=== PATIENT | female | born 1995 | race Caucasian/White ===

== ENCOUNTER 2017-05-06 10:31 | Emergency (ER) | payer BC ==
[2017-05-06 10:49] VITALS: BP 114/71
--- NOTE | 2017-05-06 12:23 | UC ---
Respiratory Complaint HPI - HPI Summary HPI Summary: 21 yo female c/o progressive cough with yellow productive mucus, tired, hurts to cough, sinus congestion. 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 No recent fever / chills. Some palpitations (hx palpitations). No GI issues. No rash. Has heart murmur (exact type unclear per hx) last echocardiogram last year in [place]. - History of Current Complaint Chief Complaint: UCRespiratory Stated Complaint: CONGESTION COUGH RUNNY NOSE Time Seen by Provider: 05/06/17 12:11 Hx Obtained From: Patient Hx Last Menstrual Period: 05/01/17 Onset/Duration: Lasting Days Severity Initially: Mild - Allergies/Home Medications Allergies/Adverse Reactions: Allergies Allergy/AdvReac Type Severity Reaction Status Date / Time No Known Allergies Allergy Verified 05/06/17 10:42 Home Medications: Home Medications FLUoxetine CAP* [PROzac CAP*] 20 mg PO DAILY 05/06/17 [History Confirmed ] Fexofenadine (NF) [Mirian 180 (NF)] 180 mg PO DAILY 05/06/17 [History Confirmed 05/06/17] PMH/Surg Hx/FS Hx/Imm Hx Previously Healthy: Yes - Surgical History Surgical History: None - Social History Alcohol Use: None Substance Use Type: None Smoking Status (MU): Never Smoked Tobacco - Immunization History Most Recent Influenza Vaccination: not this season Review of Systems Constitutional: Fatigue Skin: Negative Eyes: Negative ENT: Nasal Discharge, Sinus Congestion, Sinus Pain/Tenderness Respiratory: Cough Cardiovascular: Other - see hpi Gastrointestinal: Negative Genitourinary: Negative Motor: Negative Neurovascular: Negative Musculoskeletal: Negative Neurological: Negative Psychological: Negative Is Patient Immunocompromised?: No All Other Systems Reviewed And Are Negative: Yes Physical Exam Triage Information Reviewed: Yes Appearance: Well-Nourished - looks tired, but nontoxic Vital Signs: Initial Vital Signs Temp 98.6 F 05/06/17 10:43 Pulse 75 05/06/17 10:43 Resp 18 05/06/17 10:43 BP 114/71 05/06/17 10:43 Pulse Ox 97 05/06/17 10:43 Vital Signs Reviewed: Yes Eye Exam: Normal - grossly normal ENT: Positive: Pharyngeal erythema - mild red, c/w cough, Nasal congestion, Nasal drainage, TM dull - TM dull au Neck exam: Normal Neck: Positive: Supple, Nontender, No Lymphadenopathy Respiratory Exam: Other - + rhonchorus cough, faint exp wheeze Respiratory: Positive: Chest non-tender, Lungs clear, No respiratory distress, No accessory muscle use Cardiovascular Exam: Other - small syst murmur Cardiovascular: Positive: RRR, Pulses Normal, Brisk Capillary Refill Abdominal Exam: Normal Abdomen Description: Positive: Nontender, No Organomegaly Musculoskeletal Exam: Normal - gait steady Neurological Exam: Normal - grossly nonfocal Psychological Exam: Normal - conversing easily and appropriately Skin Exam: Normal - no visible or reported rash UC Diagnostic Evaluation - Laboratory O2 Sat by Pulse Oximetry: 97 Respiratory Course/Dx - Course Course Of Treatment: Revieved medications and medical hx with pt. Rx - levalbuterol inh (preferable 2/2 hx palpitations). Also Doxycycline. Reviewed coa / tx plan with pt. Questions as posed answered to the best of my ability - Differential Dx/Diagnosis Provider Diagnoses: Bronchitis / URI Discharge - Discharge Plan Condition: Stable Disposition: HOME Prescriptions: DOXYcycline CAP(*) [DOXYcycline 100MG CAP(*)] 100 mg PO BID #20 cap Levalbuterol HFA INHALER* [Xopenex Hfa Inhaler*] 1 puff INH Q4H PRN #1 mdi PRN Reason: Wheezing Patient Education Materials: Acute Bronchitis (ED), Bronchospasm (ED) Forms: *Work Release Referrals: Yue Armstrong MD [Primary Care Provider] - Additional Instructions: Follow up with your primary care physician, per routine. However, please seek medical attention for worse or new problems in the meantime.
== END 2017-05-06 12:37 | disposition home or self-care (01) ==
LOC: UCCORT 10:31
DX: J40 Bronchitis, not specified as acute or chronic (principal); J06.9 Acute upper respiratory infection, unspecified
CPT/HCPCS: 99202; G0463

== ENCOUNTER 2017-10-04 17:45 | Emergency (ER) | payer BC ==
[2017-10-04 18:55] VITALS: BP 119/69
--- NOTE | 2017-10-04 19:35 | ED ---
GI/ HPI - HPI Summary HPI Summary: 22 yr old female with dysuria, frequency for a little over two days, with mild low back pain. Denies fever ,chills, vomiting. Denies vaginal bleeding or discharge. She thinks she could have a UTI. - History of Current Complaint Chief Complaint: UCGU Time Seen by Provider: 10/04/17 19:12 Stated Complaint: URINARY COMPLAINT Hx Last Menstrual Period: 09/28/17 Pain Intensity: 3 - Allergy/Home Medications Allergies/Adverse Reactions: Allergies Allergy/AdvReac Type Severity Reaction Status Date / Time No Known Allergies Allergy Verified 10/04/17 18:55 PMH/Surg Hx/FS Hx/Imm Hx - Surgical History Surgery Procedure, Year, and Place: tongue Infectious Disease History: No Infectious Disease History: Denies: Traveled Outside the [place] in Last 30 Days - Family History Known Family History: Positive: None - Social History Occupation: Employed Full-time Alcohol Use: None Substance Use Type: Reports: None Smoking Status (MU): Never Smoked Tobacco Review of Systems Constitutional: Negative Positive: dysuria, frequency All Other Systems Reviewed And Are Negative: Yes Physical Exam Triage Information Reviewed: Yes Vital Signs On Initial Exam: Initial Vitals Temp Pulse Resp BP Pulse Ox 99.1 F 92 14 119/69 98 10/04/17 18:51 10/04/17 18:51 10/04/17 18:51 10/04/17 18:51 10/04/17 18:51 Vital Signs Reviewed: Yes Appearance: Positive: Well-Appearing, No Pain Distress Head/Face: Positive: Normal Head/Face Inspection Eyes: Positive: EOMI Neck: Positive: Nontender Respiratory/Lung Sounds: Positive: Clear to Auscultation, Breath Sounds Present Cardiovascular: Positive: RRR. Negative: Murmur Abdomen Description: Positive: Nontender. Negative: CVA Tenderness (R), CVA Tenderness (L) Musculoskeletal: Positive: Strength/ROM Intact Neurological: Positive: Alert, Oriented to Person Place, Time, Normal Gait Psychiatric: Positive: Normal - [place] Coma Scale Best Eye Response: 4 - Spontaneous Best Motor Response: 6 - Obeys Commands Best Verbal Response: 5 - Oriented Coma Scale Total: 15 Diagnostics - Vital Signs Vital Signs Temp Pulse Resp BP Pulse Ox 10/04/17 18:51 99.1 F 92 14 119/69 98 - Laboratory Lab Results: Lab Results 10/04/17 10/04/17 Range/Units 19:09 19:12 POC Urine Color Other POC Urine Clarity Slightly cloudy POC Urine pH 7.0 (5-9) POC Ur Specif [place] 1.015 (1.010-1.030) POC Urine Protein Negative (Negative) POC Ur Glucose (UA) Negative (Negative) POC Urine Ketones Negative (Negative) POC Urine Blood Trace-lysed A (Negative) POC Urine Nitrite Negative (Negative) POC Urine Bilirubin Negative (Negative) POC Urine Urobilinogen 0.2 (Negative) POC U Leukocyte Esteras Negative (Negative) POC Ur Test Negative (Negative) Lab Statement: Any lab studies that have been ordered have been reviewed, and results considered in the medical decision making process. GIGU Course/Dx - Course Course Of Treatment: 22 yr old with some urinary symptoms, UA unremarkable, will send for culture. DC home appears comfortable otherwise. She will follow upwith her PMD. - Diagnoses Provider Diagnoses: Dysuria Discharge - Sign-Out/Discharge Documenting (check all that apply): Discharge/Admit/Transfer - Discharge Plan Condition: Good Disposition: HOME Patient Education Materials: Dysuria (ED) Referrals: Yue Armstrong MD [Primary Care Provider] - 2 Days - Billing Disposition and Condition Condition: GOOD Disposition: Home
== END 2017-10-04 19:36 | disposition home or self-care (01) ==
LOC: UCCORT 17:45
DX: R30.0 Dysuria (principal)
CPT/HCPCS: 81003; 84702; 87086; 99211; G0463

== ENCOUNTER 2018-02-14 17:36 | Emergency (ER) | payer BC ==
--- OUTSIDE RECORDS SUMMARY | 2018-02-14 19:23 | XMS REPORT | Continuity of Care Document ---
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 Recreational Drug Use Never Used Drugs Allergies, Adverse Reactions, Alerts Description No Known Drug Allergies Medications Medication Date Status Form Strength Qnty SIG Indications Ordering Provider Projonasc Active Capsules Unknown Immunizations Description No Information Available Vital Signs Date Vital Result Comment 12/27/2017 10:43am Weight 140.00 lb Height 67 inches 5'7" BMI (Body Mass Index) 21.9 kg/m2 BP Systolic 110 mmHg BP Diastolic 77 mmHg Heart Rate 79 /min O2 % BldC Oximetry 97 % Body Temperature 99.3 F [place] Score 12 Neck Circumference in inches 13 Pain Level 0 Results Description No Information Available Procedures Description No Information Available Encounters Description No Information Available Plan of Treatment No Information Available
[2018-02-14 19:35] VITALS: BP 121/68
--- NOTE | 2018-02-14 19:42 | UC ---
Nausea/Vomiting/Diarrhea HPI - HPI Summary HPI Summary: Patient is a [employer] student. Patient states for the last 2 days she's had nausea. Patient had 3 episodes of emesis. Patient states mostly mucus in her emesis. Patient states she's been nauseated anytime she puts food and she thinks the vomiting. Patient denies fevers. Patient reports chills. Patient has developed epigastric pain after vomiting. No diarrhea. No dysuria. No hematuria. Patient reports mild low back pain again after vomiting. No analgesia taken. Patient denies sick contacts. Patient lives in an apartment with room mates. Patient's last period started 02/11/18. Patient states feels similar. Patient denies possibility of . Patient denies substance or alcohol use. Pt's medications reviewed this visit. - History of Current Complaint Chief Complaint: UCGI Stated Complaint: NAUSEOUS,QUEASY Time Seen by Provider: 02/14/18 19:37 Hx Obtained From: Patient Hx Last Menstrual Period: 02/11/18 ?: No Onset/Duration: Gradual Onset Severity Initially: Mild Pain Intensity: 3 Location: Epigastric Character: Burning Aggravating Factor(s): Food - Allergies/Home Medications Allergies/Adverse Reactions: Allergies Allergy/AdvReac Type Severity Reaction Status Date / Time No Known Allergies Allergy Verified 10/04/17 18:55 Home Medications: Home Medications Fluoxetine HCl [Prozac] 20 mg PO BEDTIME 02/14/18 [History Confirmed 02/14/18] PMH/Surg Hx/FS Hx/Imm Hx Previously Healthy: Yes - Surgical History Surgical History: Yes Surgery Procedure, Year, and Place: FIBROMA REMOVED FROM TONGUE - Family History Known Family History: Positive: Other - non contributory - Social History Occupation: Student Lives: Dormitory/Roommates Alcohol Use: None Substance Use Type: None Smoking Status (MU): Never Smoked Tobacco - Immunization History Most Recent Influenza Vaccination: not this season Review of Systems Constitutional: Chills, Fatigue Gastrointestinal: Abdominal Pain, Vomiting, Nausea Genitourinary: Negative All Other Systems Reviewed And Are Negative: Yes Physical Exam - Summary Physical Exam Summary: Vital Signs Reviewed: Yes A+Ox3, no distress Eyes: Conjunctiva Clear, MARSHAL. EOM intact and full ENT: Hearing grossly normal TM x 2 clear, uvula midline, no exudate, no erythema, lips dry mmpasty Neck: Positive: Supple Respiratory: Positive: No respiratory distress, No accessory muscle use + CTA throughout no w/r Cardiovascular: RRR nl s1, s2 no m/r CBT <2 sec abd soft + BS mild epigastric pain w/ direct palpation. no guarding, no distension, no CVA Musculoskeletal Exam: MORRELL x 4 without difficulty Strength Intact, ROM Intact Neurological: Positive: Alert, + sensation throughout Psychological: Positive: Normal Response To Family Skin: Positive: no rash, no ecchymosis Triage Information Reviewed: Yes Vital Signs: Initial Vital Signs Temp 98.6 F 02/14/18 19:30 Pulse 82 02/14/18 19:30 Resp 17 02/14/18 19:30 BP 121/68 02/14/18 19:30 Pulse Ox 100 02/14/18 19:30 Re-Evaluation - Re-Evaluation First Eval Re-Evaluation Time: 21:20 Change: Improved Comment: Pt reports feeling markedly improved. no n/v. drinking water. mild epigastrc discomfort. Rx zofran. secretion precaution. clears to bland Naus/Vom/Diarrhea Course/Dx - Course Course Of Treatment: Pt presents to urgent care with 2 days of nausea and intermittent vomiting. Pt has developed mild episgastric pain. Pt states vomit nonbilious, nonblood. no fever, chills + fatigue. VSS. Pt with mild episgastric pain. appears dehydrated. Will place IV, zofran, pepcid, po challenge. neg. urine 2+ ketone 2+ blood (menses 02/11/2018) - Differential Dx/Diagnosis Provider Diagnoses: acute nausea and vomiting. dehydration Condition At Discharge: Stable Discharge - Sign-Out/Discharge Documenting (check all that apply): Patient Departure All imaging exams completed and their final reports reviewed: No Studies - Discharge Plan Condition: Stable Disposition: HOME Prescriptions: Ondansetron ODT TAB* [Zofran 4 MG Odt TAB*] 4 mg PO Q6H PRN #10 tab.odt PRN Reason: Nausea Patient Education Materials: Acute Nausea and Vomiting (ED) Referrals: Yue Armstrong MD [Primary Care Provider] - Additional Instructions: - okay to take medication as prescribed for nausea - : For the first 6-8 hours, eat and drink clears frequent, mariana sips (water, renetta mariposa, soup broth, jello, popsicles, Gatorade). If you tolerate this okay, add bland foods such as dry toast, scrambled eggs, crackers. Wait until you are feeling better for 24 hours before eating spicy food, acidic food, tomato based food, fried food. - If you have ongoing pain, uncontrolled vomitigg or fevers, or any other concerns it is recommended you go to the emergency department for further evaluation and treatment - Billing Disposition and Condition Condition: STABLE Disposition: Home
[2018-02-14] MEDS ORDERED: Ondansetron INJ* 2 MG/ML VIAL IV ONE (19:49)
[2018-02-14] MEDS ORDERED: NS 0.9% 1000 ML* 1,000 ML IV ONE (19:49)
[2018-02-14] MEDS ORDERED: Famotidine IV* 10 MG/ML 2 ML (20 mg) IV SLOW PU ONE (19:49)
[2018-02-14] MEDS ORDERED: Ondansetron ODT TAB* 4 MG PO ONE (21:19)
== END 2018-02-14 21:36 | disposition home or self-care (01) ==
LOC: UCCORT 17:36
DX: R11.2 Nausea with vomiting, unspecified (principal); E86.0 Dehydration
CPT/HCPCS: 81003; 84702; 96361; 96374; 96375; 99212; A9270-GY; G0463; J2405

== ENCOUNTER 2019-03-06 07:04 | Emergency (ER) | payer BC ==
[2019-03-06 07:23] VITALS: BP 113/79
--- NOTE | 2019-03-06 07:32 | UC ---
Throat Pain/Nasal Bennett HPI - HPI Summary HPI Summary: nasal congestion x 4 days post nasal drip , right ear pain and sore throat, productive cough with yellow sputum no fever, + chills and body aches , nausea and vomiting from the mucus - History of Current Complaint Chief Complaint: UCGeneralIllness Stated Complaint: ST,RT EAR PAIN Time Seen by Provider: 03/06/19 07:17 Hx Obtained From: Patient Hx Last Menstrual Period: 02/20/19 Onset/Duration: Gradual Onset, Lasting Days - 4, Still Present Severity: Moderate Pain Intensity: 6 Cough: Productive Associated Signs & Symptoms: Positive: Sinus Discomfort, Nasal Discharge. Negative: Wheezing, Hoarseness, Fever, Vomiting, Rash - Allergies/Home Medications Allergies/Adverse Reactions: Allergies Allergy/AdvReac Type Severity Reaction Status Date / Time No Known Allergies Allergy Verified 03/06/19 07:23 Home Medications: Home Medications Dm/Acetaminophen/Doxylamine [Night Time Cold-Flu Rlf Sftgl] 1 tab PO ONCE [History Confirmed 03/06/19] Lamotrigine XR (NF) [Lamictal XR (NF)] 1 tab PO DAILY 03/06/19 [History Confirmed 03/06/19] PMH/Surg Hx/FS Hx/Imm Hx Psychological History: Anxiety, Depression - Surgical History Surgical History: Yes Surgery Procedure, Year, and Place: FIBROMA REMOVED FROM TONGUE - Family History Known Family History: Positive: None, Cardiac Disease, Hypertension, Diabetes, Other - non contributory - Social History Alcohol Use: Occasionally Substance Use Type: None Smoking Status (MU): Never Smoked Tobacco - Immunization History Most Recent Influenza Vaccination: not this season Review of Systems All Other Systems Reviewed And Are Negative: Yes Constitutional: Positive: Chills, Fatigue Skin: Positive: Negative Eyes: Positive: Negative ENT: Positive: Sore Throat, Ear Ache, Nasal Discharge, Sinus Congestion, Sinus Pain/Tenderness Respiratory: Positive: Cough Cardiovascular: Positive: Negative Is Patient Immunocompromised?: No Physical Exam Triage Information Reviewed: Yes Appearance: Well-Appearing, No Pain Distress, Well-Nourished Vital Signs: Initial Vital Signs Temp 98.9 F 03/06/19 07:19 Pulse 89 03/06/19 07:19 Resp 15 03/06/19 07:19 BP 113/79 03/06/19 07:19 Pulse Ox 99 03/06/19 07:19 Vital Signs Reviewed: Yes Eye Exam: Normal Eyes: Positive: Conjunctiva Clear ENT: Positive: Normal ENT inspection, Pharyngeal erythema, Nasal congestion, Nasal drainage, TMs normal. Negative: TM bulging, TM dull, TM red, Tonsillar swelling, Tonsillar exudate, Sinus tenderness Neck: Positive: Supple, Nontender, No Lymphadenopathy Respiratory: Positive: Chest non-tender, Lungs clear, Normal breath sounds, No respiratory distress Cardiovascular: Positive: RRR, No Murmur, Pulses Normal Abdominal Exam: Normal Throat Pain/Nasal Course/Dx - Differential Dx/Diagnosis Provider Diagnosis: URI (upper respiratory infection) Discharge ED - Sign-Out/Discharge Documenting (check all that apply): Patient Departure All imaging exams completed and their final reports reviewed: No Studies - Discharge Plan Condition: Stable Disposition: HOME Patient Education Materials: Upper Respiratory Infection (ED) Referrals: Yue Armstrong MD [Primary Care Provider] - If Needed Additional Instructions: negative rapid strep viral illness, no need for antibiotics - Billing Disposition and Condition Condition: STABLE Disposition: Home
== END 2019-03-06 07:42 | disposition home or self-care (01) ==
LOC: UCCORT 07:04
DX: J06.9 Acute upper respiratory infection, unspecified (principal); H92.01 Otalgia, right ear; R11.0 Nausea; R53.83 Other fatigue; F41.9 Anxiety disorder, unspecified; F32.9 Major depressive disorder, single episode, unspecified; Z79.899 Other long term (current) drug therapy
CPT/HCPCS: 87651; 99211; G0463